=== PATIENT | female | born 1975 | race Caucasian/White ===

== ENCOUNTER 2018-12-01 07:39 | Day surgery (SDC) | payer BC ==
[~2018-12-01 07:39] MED LIST: Lactated Ringers 1,000 ML IV SCH
[2018-12-01] MEDS ORDERED: Midazolam 1 MG/ML 2 ML SDV ONE (08:29)
[2018-12-01] MEDS ORDERED: fentaNYL 100 MCG/2 ML SDV ONE ×2 (08:29→09:54)
[2018-12-01] MEDS ORDERED: Propofol 200 MG/20 ML SDV ONE ×5 (08:29→10:28)
--- NOTE | 2018-12-01 08:29 | PCM.PREANE ---
Preanesthetic Assessment - Anesthesia/Transfusion/Family Hx Anesthesia History: Prior Anesthesia Without Reaction Family History of Anesthesia Reaction: No Transfusion History: No Prior Transfusion(s) Intubation History: Unknown - Review of Systems General: No Symptoms Pulmonary: No Symptoms Cardiovascular: No Symptoms Gastrointestinal: No Symptoms Neurological: No Symptoms Other: Reports: None - Physical Assessment Height: 1.63 m Weight: 89.811 kg ASA Class: 2 Mental Status: Alert & Oriented x3 Airway Class: Mallampati = 2 Dentition: Reports: Normal Dentition Thyro-Mental Finger Breadths: 3 Mouth Opening Finger Breadths: 3 ROM/Head Extension: Full Lungs: Clear to Auscultation, Normal Respiratory Effort Cardiovascular: Regular Rate, Regular Rhythm - Lab Values: Laboratory Last Values WBC 9.44 K/uL (4.0-11.0) 12/01/18 08:20 RBC 4.97 M/uL (4.30-5.90) 12/01/18 08:20 Hgb 14.6 g/dL (12.0-16.0) 12/01/18 08:20 Hct 41.9 % (36.0-46.0) 12/01/18 08:20 MCV 84.3 fL (80.0-98.0) 12/01/18 08:20 MCH 29.4 pg (27.0-32.0) 12/01/18 08:20 MCHC 34.8 g/dL (31.0-37.0) 12/01/18 08:20 RDW Std Deviation 43.5 fl (28.0-62.0) 12/01/18 08:20 RDW Coeff of Estefani 14 % (11.0-15.0) 12/01/18 08:20 Plt Count 296 K/uL (150-400) 12/01/18 08:20 MPV 9.00 fL (7.40-12.00) 12/01/18 08:20 Neut % (Auto) 67.7 % (48.0-80.0) 12/01/18 08:20 Lymph % (Auto) 23.6 % (16.0-40.0) 12/01/18 08:20 [place] % (Auto) 7.3 % (0.0-15.0) 12/01/18 08:20 Eos % (Auto) 1.1 % (0.0-7.0) 12/01/18 08:20 Baso % (Auto) 0.3 % (0.0-1.5) 12/01/18 08:20 Neut # (Auto) 6.4 K/uL (1.4-5.7) H 12/01/18 08:20 Lymph # (Auto) 2.2 K/uL (0.6-2.4) 12/01/18 08:20 [place] # (Auto) 0.7 K/uL (0.0-0.8) 12/01/18 08:20 Eos # (Auto) 0.1 K/uL (0.0-0.7) 12/01/18 08:20 Baso # (Auto) 0.0 K/uL (0.0-0.1) 12/01/18 08:20 Nucleated RBC % 0.0 /100WBC 12/01/18 08:20 Nucleated RBCs # 0 K/uL 12/01/18 08:20 - Allergies Allergies/Adverse Reactions: Allergies Allergy/AdvReac Type Severity Reaction Status Date / Time No Known Allergies Allergy Verified 11/26/18 09:59 - Blood Blood Available: No - Anesthesia Plan Pre-Op Medication Ordered: None - Acknowledgements Anesthesia Type Planned: MAC Pt an Appropriate Candidate for the Planned Anesthesia: Yes Alternatives and Risks of Anesthesia Discussed w Pt/Guardian: Yes Pt/Guardian Understands and Agrees with Anesthesia Plan: Yes PreAnesthesia Questionnaire HEENT History: Reports: Other (See Below) Other HEENT History: wears glasses/contacts Genitourinary History: Reports: None 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: , Spontaneous Musculoskeletal History: Reports: Back Pain, Chronic, Neck Pain, Chronic Neurological History: Reports: Migraines Endocrine/Metabolic History: Reports: Obesity/BMI 30+ - Past Surgical History Female Surgical History: Reports: Breast Reduction, D&C - SUBSTANCE USE Smoking Status *Q: Never Smoker Recreational Drug Use History: No - HOME MEDS Home Medications: Home Meds Chlorthalidone 25 mg PO DAILY 11/25/18 [History] Norethindrone-Ethinyl Estrad [Nortrel 1-35 28 Tablet] 1 tab PO DAILY 11/25/18 [ History] Potassium Chloride 8 mcg PO DAILY 11/25/18 [History] SUMAtriptan Succinate [Imitrex] 1 tab PO ASDIRECTED PRN 11/25/18 [History] Diclofenac Sodium [Voltaren] 50 mg PO ASDIRECTED PRN 11/26/18 [History] - CURRENT (IN HOUSE) MEDS Current Meds: Current Medications Lactated Ringer's (Ringers, Lactated) 1,000 mls @ 125 mls/hr IV ASDIRECTED IVETTE
[2018-12-01] MEDS ORDERED: Sodium Chloride 0.9% 10 ML SDV IV PRN (09:03)
[2018-12-01] MEDS ORDERED: Sodium Chloride 0.9% 2.5 ML Syringe FLUSH PRN (09:03)
[2018-12-01] MEDS ORDERED: Sodium Chloride 0.9% 10 ML Syringe FLUSH PRN (09:03)
--- NOTE | 2018-12-01 09:14 | PCM.OPNOTE ---
- General Post-Op/Procedure Note Date of Surgery/Procedure: 12/01/18 Operative Procedure(s): Loop Electrosurgical excision procedure Findings: EUA showed normal sized anteverted uterus . Cervix showed acetowhite epithelium around the ectocervix with friable cervix around the 9oclock to 3 0clock position Cervical and endocervical hat specimen Cervical base was oozing despite Coagulation , hence a stitch with 2.0 vicryl placed from 9oclock and 3 oclock and surgicel with monsel placed on the cervical base and tried across with the stitch Pre Op Diagnosis: SRIRAM 2 Post-Op Diagnosis: SRIRAM 2 Anesthesia Technique: MAC Primary Surgeon: Oscar Allison Anesthesia Provider: Naheed Taylor Radic Pathology: Cervical cone Fluid Replacement, Intraop: 1,100 EBL in mLs: 20 Complications: None Condition: Good
[2018-12-01] MEDS ORDERED: Dexamethasone 4 MG/ML 5 ML MDV ONE ×2 (09:43→09:46)
[2018-12-01] MEDS ORDERED: fentaNYL 100 MCG/2 ML SDV IVPUSH PRN (09:49)
[2018-12-01] MEDS ORDERED: Meperidine PF 25 MG/ML Syringe IVPUSH ONE (09:49)
[2018-12-01] MEDS ORDERED: Promethazine 25 MG/ML SDV IM ONE (09:49)
[2018-12-01] MEDS ORDERED: Ketorolac 30 MG/ML SDV ONE (10:34)
--- NOTE | 2018-12-01 12:08 | PCM48HPAN ---
Post Anesthesia Note - EVALUATION WITHIN 48HRS OF ANESTHETIC Vital Signs in Normal Range: Yes Patient Participated in Evaluation: Yes Respiratory Function Stable: Yes Airway Patent: Yes Cardiovascular Function Stable: Yes Hydration Status Stable: Yes Pain Control Satisfactory: Yes Nausea and Vomiting Control Satisfactory: Yes Mental Status Recovered: Yes Resp Rate: 10 - COMMENTS/OBSERVATIONS Free Text/Narrative:: no anesthesia problems
--- NOTE | 2018-12-03 08:00 | OR ---
SURGEON: LISA HERCULES DATE OF PROCEDURE: 12/01/2018 PREOPERATIVE DIAGNOSIS: This is a 43-year-old with with SRIRAM II. POSTOPERATIVE DIAGNOSIS: This is a 43-year-old with with SRIRAM II. PROCEDURE: Loop electrosurgical excision procedure. IV FLUIDS: 1100. EBL: 200. FINDING: Normal-sized anteverted uterus. Normal-appearing cervix. DESCRIPTION OF PROCEDURE: The patient was taken to the operating room where general anesthesia was performed without difficulty. The vagina and perineum were draped in the usual sterile fashion. A bivalve speculum was used to expose the cervix. The acetic acid was placed on the cervix. Using lidocaine with epinephrine in a spinal needle, the cervix was injected at 3 o'clock, 6 o'clock , 12 o'clock, and 9 o'clock positions. The procedure was done with the electrode, going from the right to the left, after which the endocervical hat was taken with a small electrode, the LEEP electrode. Then, the ECC was done with the Kevorkian curette, and the cytobrush was used to collect the scrapings. The specimen was tagged at 12 o'clock position and sent to the pathology lab. The base of this cone was then ablated with the ball electrode. Bleeding was noted. As a result, interlocking stitch was placed from 3 o'clock to 9 o'clock position. Then, Surgicel was embedded in Monsel's and then placed in the bed and then tied. Hemostasis was noted. The patient tolerated the procedure well. All instrument and pad count were correct x2. NEREIDA / UNA /[id number]
== END 2018-12-01 12:30 | disposition home or self-care (01) ==
LOC: MW.SDS 07:39
PROVIDERS: ATTEND Obstetrics & Gynecology
DX: N87.1 Moderate cervical dysplasia (principal); G43.909 Migraine, unspecified, not intractable, without status migrainosus; E66.9 Obesity, unspecified; Z68.34 Body mass index [BMI] 34.0-34.9, adult; Z79.899 Other long term (current) drug therapy
CPT/HCPCS: 36415; 57522; 84703; 85025; J1100; J1885; J2001; J2250; J2704; J3010; J7120; 88305; 88307